=== PATIENT | female | born 1935 | race Asian ===

== ENCOUNTER 2022-08-07 13:31 | Emergency (ER) | payer MEDICARE, OTHER, SELFPAY ==
[2022-08-07] VITALS (26 sets, daily range): BP systolic 134–235; BP diastolic 58–95; PULSE 51–59; RESP 7–37; TEMP 36.5–37.5; O2SAT 86–100; BMI 21.9
--- NOTE | 2022-08-07 14:21 | DI.RAD.S_ITS ---
PROCEDURE: XR CHEST 1V INDICATIONS: chest pain TECHNIQUE: One view of the chest was acquired. COMPARISON: None. FINDINGS: Surgical changes and devices: Right upper quadrant cholecystectomy clips. Lungs and pleura: Lungs are clear. No pleural effusions or pneumothorax. Mediastinum: Cardiac silhouette is mildly enlarged. Mild to moderate aortic atherosclerotic calcifications. Bones and chest wall: No suspicious bony lesions. Overlying soft tissues appear unremarkable. Age appropriate degenerative changes are noted. IMPRESSION: Mild enlarged cardiac silhouette. No acute pulmonary opacity. Approved by: Elgin Reveles M.D. on 08/07/2022 at 15:34
[2022-08-07 14:48] LABS: Add Manual Diff / Slide Review NO; Basophils Absolute Auto 0 /uL (0-100); Basophils Percent Auto 0.6 % (0-2); Eosinophils Absolute Auto 100 /uL (0-450); Eosinophils Percent Auto 1.2 % (2-4); Hematocrit 39.3 % (36-46); Hemoglobin 13.2 g/dL (12.0-16.0); Lymphocytes Absolute Auto 1500 /uL (1100-4500); Lymphocytes Percent Auto 32.4 % (25-40); Mean Corpuscular HGB Conc 33.6 % (30-36); Mean Corpuscular Hemoglobin 34.6 PG (26-34); Mean Corpuscular Volume 102.9 fL (80-100); Monocytes Absolute Auto 400 /uL (0-900); Monocytes Percent Auto 9.6 % (3-14); Neutrophils Absolute Auto 2600 /uL (1500-7000); Neutrophils Percent Auto 56.2 % (50-75); Platelet Count 191 X10^3/uL (150-400); Red Blood Cell Count 3.82 X10^6/uL (4.0-5.2); Red Cell Distribution Width 14.8 % (11.6-14.8); White Blood Cell Count 4.7 X10^3/uL (4.5-11.0)
[2022-08-07 14:53] LABS: Prothrombin Time 11.4 SECONDS (10.1-12.7)
[2022-08-07 14:56] LABS: PTT Partial Thromboplastin Tim 38 SECONDS (26-36)
[2022-08-07 15:00] LABS: Alanine Aminotransferase 19 IU/L (<35); Albumin 3.9 g/dL (3.5-5.0); Alkaline Phosphatase 76 U/L (38-126); Aspartate Aminotransferase 26 IU/L (14-36); BUN Creatinine Ratio 20.3 (6-22); Bilirubin Total 0.5 mg/dL (0.2-1.3); Blood Urea Nitrogen 16 mg/dL (7-17); Calcium 8.9 mg/dL (8.4-10.2); Carbon Dioxide 33 mmol/L (22-32); Chloride 103 mmol/L (98-107); Creatine Kinase 52 U/L (30-135); Estimated Glomerular Filt Rate > 60 mL/min (>60); Globulin 4.1 g/dL (1.7-4.1); Glucose 86 mg/dL (80-110); HEMOLYSIS < 15 (0-50); Lipase 187 U/L (23-300); Magnesium 1.9 mg/dL (1.6-2.3); Potassium 4.3 mmol/L (3.4-5.1); Sodium 139 mmol/L (137-145)
[2022-08-07 15:10] LABS: Troponin I < 0.012 ng/mL (0.01-0.034)
[2022-08-07 16:24] LABS: RBC Urine None Seen (0-5/HPF); WBC Urine None Seen (0-5/HPF)
[2022-08-07 16:25] LABS: Amorphous Sediment Urine 1+; Bacteria Urine None Seen; Culture Indicated Urine Cult Not Indicated
--- NOTE | 2022-08-07 17:45 | ED_ITS ---
HPI - General Adult <FABY Simpson - Last Filed: 08/07/22 19:48> General Chief complaint: Hypertension Stated complaint: elevated BP Time Seen by Provider: 08/07/22 17:24 Source: patient Mode of arrival: Family Vehicle History of Present Illness HPI narrative: This is a 87-year-old female who presents emergency department complaining of hypertension this morning and over the last few days. 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 Patient is taken lisinopril, metoprolol, losartan in the past but is on a 1 medication regimen at this time for hypertension. She is not anticoagulated, she presents today for headache with hypertension, had systolics over 200 today, at baseline she checks her blood pressure morning and night. She is not been to this hospital before so there no prior records. She denies chest pain, dysuria, confusion, vision changes, focal neurological deficit or shortness of breath. Related Data Previous Rx's Medication Instructions Recorded hydralazine 25 mg tablet 25 mg PO DAILY PRN high blood 08/07/22 pressure #30 tabs Allergies Allergy/AdvReac Type Severity Reaction Status Date / Time lisinopril Allergy Cough Verified 08/07/22 14:20 Review of Systems <FABY Simpson - Last Filed: 08/07/22 19:48> Review of Systems ROS Unobtainable: All systems reviewed & are unremarkable except as noted in HPI and below Patient History <FABY Simpson - Last Filed: 08/07/22 19:48> Social History Smoking Status: Never smoker Smoking Status: Never smoker alcohol intake frequency: 0-2 drinks per day Substance Use Type: does not use Exam <FABY Simpson - Last Filed: 08/07/22 19:48> Narrative Exam Narrative: Reviewed vitals signs and nursing notes. General: cooperative, in no acute distress, well groomed HEENT: symmetrical facial expressions, moist mucous membranes, neck is supple CV: Bradycardic rate and regular rhythm, systolic murmur heard on the left lateral border warm extremities Respiratory: Without abnormal breath sounds, normal work of breathing, without tachypnea, hypoxia. GI: abdomen soft, nontender to palpation in all quadrants, nondistended, without masses, rebound tenderness or CVA tenderness bilaterally. MSK: moves all extremities, neurovascularly intact, no weakness, normal tone Skin: brisk capillary refill, without rash or wound Neuro: normal speech and cognition, A&O x3, ambulatory, clear speech Initial Vital Signs Initial Vital Signs: Vital Signs Temperature 99.5 F 08/07/22 14:16 Pulse Rate 59 L 08/07/22 14:16 Respiratory Rate 19 08/07/22 14:16 Blood Pressure 233/93 H 08/07/22 14:16 Pulse Oximetry 99 08/07/22 14:16 Oxygen Delivery Method Room Air 08/07/22 14:16 <Tanesha Flores DO - Last Filed: 08/11/22 08:42> Initial Vital Signs Initial Vital Signs: Vital Signs Temperature 99.5 F 08/07/22 14:16 Pulse Rate 59 L 08/07/22 14:16 Respiratory Rate 19 08/07/22 14:16 Blood Pressure 233/93 H 08/07/22 14:16 Pulse Oximetry 99 08/07/22 14:16 Oxygen Delivery Method Room Air 08/07/22 14:16 Course <FABY Simpson - Last Filed: 08/07/22 19:48> Orders Ordered: Discontinued Medications Aspirin (Aspirin 81 Mg Chew Tab) 324 mg PO NOW ONE Stop: 08/07/22 14:22 Last Admin: 08/07/22 17:51 Dose: Not Given Documented By: TUCKER Hydralazine HCl (Hydralazine 25 Mg Tablet) 25 mg PO NOW ONE Stop: 08/07/22 17:54 Last Admin: 08/07/22 18:10 Dose: 25 mg Documented By: TUCKER Vital Signs Vital signs: Vital Signs - 8 hr 08/07/22 14:16 08/07/22 15:07 08/07/22 15:16 Temperature 99.5 F Pulse Rate 59 L 52 L Respiratory Rate 19 17 Blood Pressure 233/93 H Pulse Oximetry 99 99 99 Oxygen Delivery Method Room Air 08/07/22 15:16 08/07/22 15:21 08/07/22 15:21 Temperature Pulse Rate 52 L Respiratory Rate 19 Blood Pressure 235/95 H 210/88 H Pulse Oximetry 99 Oxygen Delivery Method 08/07/22 15:30 08/07/22 15:30 08/07/22 15:45 Temperature Pulse Rate 52 L Respiratory Rate 16 Blood Pressure 197/81 H 207/86 H Pulse Oximetry 99 Oxygen Delivery Method 08/07/22 15:45 08/07/22 16:00 08/07/22 16:00 Temperature Pulse Rate 53 L 52 L Respiratory Rate 15 15 Blood Pressure 186/79 H Pulse Oximetry 100 99 Oxygen Delivery Method 08/07/22 16:15 08/07/22 16:15 08/07/22 16:30 Temperature Pulse Rate 51 L Respiratory Rate 7 L Blood Pressure 165/71 H 159/58 H Pulse Oximetry 100 Oxygen Delivery Method 08/07/22 16:30 08/07/22 16:45 08/07/22 16:45 Temperature Pulse Rate 52 L 52 L Respiratory Rate 18 18 Blood Pressure 172/75 H Pulse Oximetry 86 L 100 Oxygen Delivery Method 08/07/22 17:00 08/07/22 17:00 08/07/22 17:15 Temperature Pulse Rate 52 L 51 L Respiratory Rate 24 23 Blood Pressure 179/77 H Pulse Oximetry 100 Oxygen Delivery Method 08/07/22 17:15 08/07/22 17:30 08/07/22 17:31 Temperature Pulse Rate 57 L 57 L Respiratory Rate 31 H 37 H Blood Pressure 190/80 H Pulse Oximetry 99 99 Oxygen Delivery Method 08/07/22 17:31 08/07/22 18:00 08/07/22 18:13 Temperature Pulse Rate 56 L 57 L Respiratory Rate 23 20 Blood Pressure 221/92 H Pulse Oximetry Oxygen Delivery Method 08/07/22 18:13 08/07/22 18:15 08/07/22 18:15 Temperature Pulse Rate 53 L Respiratory Rate 14 Blood Pressure 134/79 199/83 H Pulse Oximetry Oxygen Delivery Method 08/07/22 18:30 08/07/22 18:31 08/07/22 18:31 Temperature Pulse Rate 54 L 53 L Respiratory Rate 19 21 Blood Pressure 220/88 H Pulse Oximetry Oxygen Delivery Method 08/07/22 18:58 08/07/22 18:58 08/07/22 19:00 Temperature Pulse Rate 56 L Respiratory Rate 26 H Blood Pressure 208/82 H 208/80 H Pulse Oximetry 99 Oxygen Delivery Method 08/07/22 19:00 08/07/22 19:16 08/07/22 19:16 Temperature Pulse Rate 59 L 58 L Respiratory Rate 26 H 24 Blood Pressure 219/86 H Pulse Oximetry 94 Oxygen Delivery Method 08/07/22 19:30 08/07/22 19:39 08/07/22 19:31 Temperature 97.7 F Pulse Rate 55 L 58 L Respiratory Rate 24 16 Blood Pressure 165/72 H 164/70 H Pulse Oximetry 94 97 Oxygen Delivery Method Room Air 08/07/22 19:31 08/07/22 19:35 08/07/22 19:35 Temperature Pulse Rate 55 L 57 L Respiratory Rate 22 31 H Blood Pressure 165/72 H Pulse Oximetry 94 94 Oxygen Delivery Method <Tanesha Flores, - Last Filed: 08/11/22 08:42> Orders Ordered: Discontinued Medications Aspirin (Aspirin 81 Mg Chew Tab) 324 mg PO NOW ONE Stop: 08/07/22 14:22 Last Admin: 08/07/22 17:51 Dose: Not Given Documented By: TUCKER Hydralazine HCl (Hydralazine 25 Mg Tablet) 25 mg PO NOW ONE Stop: 08/07/22 17:54 Last Admin: 08/07/22 18:10 Dose: 25 mg Documented By: TUCKER Vital Signs Vital signs: Vital Signs - 8 hr 08/07/22 14:16 08/07/22 15:07 08/07/22 15:16 Temperature 99.5 F Pulse Rate 59 L 52 L Respiratory Rate 19 17 Blood Pressure 233/93 H Pulse Oximetry 99 99 99 Oxygen Delivery Method Room Air 08/07/22 15:16 08/07/22 15:21 08/07/22 15:21 Temperature Pulse Rate 52 L Respiratory Rate 19 Blood Pressure 235/95 H 210/88 H Pulse Oximetry 99 Oxygen Delivery Method 08/07/22 15:30 08/07/22 15:30 08/07/22 15:45 Temperature Pulse Rate 52 L Respiratory Rate 16 Blood Pressure 197/81 H 207/86 H Pulse Oximetry 99 Oxygen Delivery Method 08/07/22 15:45 08/07/22 16:00 08/07/22 16:00 Temperature Pulse Rate 53 L 52 L Respiratory Rate 15 15 Blood Pressure 186/79 H Pulse Oximetry 100 99 Oxygen Delivery Method 08/07/22 16:15 08/07/22 16:15 08/07/22 16:30 Temperature Pulse Rate 51 L Respiratory Rate 7 L Blood Pressure 165/71 H 159/58 H Pulse Oximetry 100 Oxygen Delivery Method 08/07/22 16:30 08/07/22 16:45 08/07/22 16:45 Temperature Pulse Rate 52 L 52 L Respiratory Rate 18 18 Blood Pressure 172/75 H Pulse Oximetry 86 L 100 Oxygen Delivery Method 08/07/22 17:00 08/07/22 17:00 08/07/22 17:15 Temperature Pulse Rate 52 L 51 L Respiratory Rate 24 23 Blood Pressure 179/77 H Pulse Oximetry 100 Oxygen Delivery Method 08/07/22 17:15 08/07/22 17:30 08/07/22 17:31 Temperature Pulse Rate 57 L 57 L Respiratory Rate 31 H 37 H Blood Pressure 190/80 H Pulse Oximetry 99 99 Oxygen Delivery Method 08/07/22 17:31 08/07/22 18:00 08/07/22 18:13 Temperature Pulse Rate 56 L 57 L Respiratory Rate 23 20 Blood Pressure 221/92 H Pulse Oximetry Oxygen Delivery Method 08/07/22 18:13 08/07/22 18:15 08/07/22 18:15 Temperature Pulse Rate 53 L Respiratory Rate 14 Blood Pressure 134/79 199/83 H Pulse Oximetry Oxygen Delivery Method 08/07/22 18:30 08/07/22 18:31 08/07/22 18:31 Temperature Pulse Rate 54 L 53 L Respiratory Rate 19 21 Blood Pressure 220/88 H Pulse Oximetry Oxygen Delivery Method 08/07/22 18:58 08/07/22 18:58 08/07/22 19:00 Temperature Pulse Rate 56 L Respiratory Rate 26 H Blood Pressure 208/82 H 208/80 H Pulse Oximetry 99 Oxygen Delivery Method 08/07/22 19:00 08/07/22 19:16 08/07/22 19:16 Temperature Pulse Rate 59 L 58 L Respiratory Rate 26 H 24 Blood Pressure 219/86 H Pulse Oximetry 94 Oxygen Delivery Method 08/07/22 19:30 08/07/22 19:39 08/07/22 19:31 Temperature 97.7 F Pulse Rate 55 L 58 L Respiratory Rate 24 16 Blood Pressure 165/72 H 164/70 H Pulse Oximetry 94 97 Oxygen Delivery Method Room Air 08/07/22 19:31 08/07/22 19:35 08/07/22 19:35 Temperature Pulse Rate 55 L 57 L Respiratory Rate 22 31 H Blood Pressure 165/72 H Pulse Oximetry 94 94 Oxygen Delivery Method Medical Decision Making <Wendi Reynolds, [facility] - Last Filed: 08/07/22 19:48> Lab Data 08/07/22 14:34 08/07/22 14:34 Labs: Lab Results 08/07/22 08/07/22 08/07/22 Range/Units 14:29 14:34 14:34 WBC 4.7 (4.5-11.0) X10^3/uL RBC 3.82 L (4.0-5.2) X10^6/uL Hgb 13.2 (12.0-16.0) g/dL Hct 39.3 (36-46) % MCV 102.9 H (80-100) fL MCH 34.6 H (26-34) PG MCHC 33.6 (30-36) % RDW 14.8 (11.6-14.8) % Plt Count 191 (150-400) X10^3/uL Neut % (Auto) 56.2 (50-75) % Lymph % (Auto) 32.4 (25-40) % [place] % (Auto) 9.6 (3-14) % Eos % (Auto) 1.2 L (2-4) % Baso % (Auto) 0.6 (0-2) % Neut # (Auto) 2600 (0700-0409) /uL Lymph # (Auto) 1500 (5991-7807) /uL [place] # (Auto) 400 (0-900) /uL Eos # (Auto) 100 (0-450) /uL Baso # (Auto) 0 (0-100) /uL PT 11.4 (10.1-12.7) SECONDS INR 1.0 (0.9-1.3) APTT 38 H (26-36) SECONDS Sodium (137-145) mmol/L Potassium (3.4-5.1) mmol/L Chloride (98-107) mmol/L Carbon Dioxide (22-32) mmol/L BUN (7-17) mg/dL Creatinine (0.52-1.04) mg/dL Estimated GFR (>60) mL/min BUN/Creatinine Ratio (6-22) Glucose (80-110) mg/dL Calcium (8.4-10.2) mg/dL Magnesium (1.6-2.3) mg/dL Total Bilirubin (0.2-1.3) mg/dL AST (14-36) IU/L ALT (<35) IU/L Alkaline Phosphatase (38-126) U/L Total Creatine Kinase (30-135) U/L CK-MB (CK-2) CK-MB (CK-2) Rel Index Troponin I (0.01-0.034) ng/mL NT-Pro-B Natriuret Pep (<450) pg/mL Total Protein (6.3-8.2) g/dL Albumin (3.5-5.0) g/dL Globulin (1.7-4.1) g/dL Albumin/Globulin Ratio (1.0-2.8) Lipase (23-300) U/L Urine RBC None seen (0-5/HPF) Urine WBC None seen (0-5/HPF) Amorphous Sediment 1+ Urine Bacteria None seen (None) Ur Culture Indicated? Cult not indicated SARS-CoV-2 (PCR) (Negative) 08/07/22 08/07/22 08/07/22 Range/Units 14:34 17:41 18:55 WBC (4.5-11.0) X10^3/uL RBC (4.0-5.2) X10^6/uL Hgb (12.0-16.0) g/dL Hct (36-46) % MCV (80-100) fL MCH (26-34) PG MCHC (30-36) % RDW (11.6-14.8) % Plt Count (150-400) X10^3/uL Neut % (Auto) (50-75) % Lymph % (Auto) (25-40) % [place] % (Auto) (3-14) % Eos % (Auto) (2-4) % Baso % (Auto) (0-2) % Neut # (Auto) (3985-5864) /uL Lymph # (Auto) (3444-9755) /uL [place] # (Auto) (0-900) /uL Eos # (Auto) (0-450) /uL Baso # (Auto) (0-100) /uL PT (10.1-12.7) SECONDS INR (0.9-1.3) APTT (26-36) SECONDS Sodium 139 (137-145) mmol/L Potassium 4.3 (3.4-5.1) mmol/L Chloride 103 (98-107) mmol/L Carbon Dioxide 33 H (22-32) mmol/L BUN 16 (7-17) mg/dL Creatinine 0.79 (0.52-1.04) mg/dL Estimated GFR > 60 (>60) mL/min BUN/Creatinine Ratio 20.3 (6-22) Glucose 86 (80-110) mg/dL Calcium 8.9 (8.4-10.2) mg/dL Magnesium 1.9 (1.6-2.3) mg/dL Total Bilirubin 0.5 (0.2-1.3) mg/dL AST 26 (14-36) IU/L ALT 19 (<35) IU/L Alkaline Phosphatase 76 (38-126) U/L Total Creatine Kinase 52 (30-135) U/L CK-MB (CK-2) TNP CK-MB (CK-2) Rel Index TNP Troponin I < 0.012 < 0.012 (0.01-0.034) ng/mL NT-Pro-B Natriuret Pep 189 (<450) pg/mL Total Protein 8.0 (6.3-8.2) g/dL Albumin 3.9 (3.5-5.0) g/dL Globulin 4.1 (1.7-4.1) g/dL Albumin/Globulin Ratio 1.0 (1.0-2.8) Lipase 187 (23-300) U/L Urine RBC (0-5/HPF) Urine WBC (0-5/HPF) Amorphous Sediment Urine Bacteria (None) Ur Culture Indicated? SARS-CoV-2 (PCR) Negative (Negative) Urine Dip Bedside Urine Glucose Negative Bedside Urine Bilirubin - Negative Bedside Urine Ketone - Negative Urine Specific Brave 1.010 Bedside Urine Occult Blood - Negative Bedside Urine pH 6.0 Bedside Urine Protein +/- 15 Bedside Urine Urobilinogen - Negative Bedside Urine Nitrite - Negative Bedside Urine Leukocytes - Negative Esterase Point of care testing: Urine Dip Bedside Urine Glucose Negative Bedside Urine Bilirubin - Negative Bedside Urine Ketone - Negative Urine Specific Brave 1.010 Bedside Urine Occult Blood - Negative Bedside Urine pH 6.0 Bedside Urine Protein +/- 15 Bedside Urine Urobilinogen - Negative Bedside Urine Nitrite - Negative Bedside Urine Leukocytes - Negative Esterase Imaging Data Chest x-ray: Radiologist's Impression: PROCEDURE:? XR CHEST 1V ? INDICATIONS:? chest pain ? TECHNIQUE:? One view of the chest was acquired.? ? COMPARISON:? None. ? FINDINGS:? ? Surgical changes and devices:? Right upper quadrant cholecystectomy clips.? ? Lungs and pleura:? Lungs are clear.? No pleural effusions or pneumothorax.? ? Mediastinum:? Cardiac silhouette is mildly enlarged.? Mild to moderate aortic atherosclerotic calcifications. ? Bones and chest wall:? No suspicious bony lesions.? Overlying soft tissues appear unremarkable.? Age appropriate degenerative changes are noted. ? IMPRESSION:? Mild enlarged cardiac silhouette.? No acute pulmonary opacity.? Approved by: Elgin Reveles M.D. on 08/07/2022 at 15:34? CT scan - head: Radiologist's Impression: PROCEDURE:? CT HEAD/BRAIN WO CON ? INDICATIONS:? hypertensive ? TECHNIQUE:? Noncontrast 4.5 mm thick angled axial sections acquired from the foramen magnum to the vertex, with coronal and sagittal reformats.? For radiation dose reduction, the following was used:? automated exposure control, adjustment of mA and/or kV according to patient size.? ? COMPARISON:? [facility], , US RENAL COMPLETE, 08/07/2022, 17:57.? [facility], CR, XR CHEST 1V, 08/07/2022, 14:43. ? FINDINGS:? Image quality:? Excellent.? ? CSF spaces:? Basal cisterns are patent.? No extra-axial fluid collections.? The ventricles are symmetric in size and shape.? ? Brain:? No intracranial bleeds or masses.? There is cerebral volume loss for age, with resultant ventricular and sulcal prominence.? There are periventricular and deep white matter chronic small vessel ischemic changes.? There is intracranial internal carotid artery atherosclerosis.? Symmetric calcification can be seen involving the basal ganglia, which is considered to be normal for age. ? Skull and face:? Calvarium and visualized facial bones appear intact, without suspicious lesions.? ? Sinuses:? [id number] mucosal thickening is seen involving the right maxillary sinus.? The castillo of the right maxillary sinus appear demineralized.? The para nasal sinuses are otherwise unremarkable. No abnormal fluid is seen within the mastoid air cells. ? ? IMPRESSION:? Study within normal limits for age, without acute intracranial hemorrhage. ? Focal right maxillary sinus disease noted. ? ? Dictated by: Bhaskar Govea M.D. on 08/07/2022 at 18:23 ? ? Approved by: Bhaskar Govea M.D. on 08/07/2022 at 18:24 ? Renal US: Radiologist's Impression: PROCEDURE:? US RENAL COMPLETE ? INDICATIONS:? hypertension ? TECHNIQUE:? Real-time scanning was performed of the kidneys and bladder, with image documentation.? ? COMPARISON:? None. ? FINDINGS:? ? Kidneys:? Kidneys are mildly atrophic in size.? Right kidney measures 9.0 cm long; left kidney measures 8.5 cm long.? Right renal cortical thickness is 1.3 cm; left renal cortical thickness is 1.3 cm.? Renal cortical echotexture is normal.? No hydronephrosis or nephrolithiasis.? No suspicious solid mass lesions.? Simple bilateral renal cysts. ? Bladder:? Pre-void bladder volume is 379 mL.? Post-void residual is 8 mL.? Pre- void images demonstrate no intraluminal masses or stones.? On pre-void images, bilateral ureteral jets are noted with color Doppler interrogation.? (Of note, ureteral jets may not be detectable in up to 25% of cases due to insufficient differences in specific gravity between ureteral and bladder urine).? ? Miscellaneous:? No free pelvic fluid.? ? IMPRESSION:? Mild bilateral renal atrophy. ? ? Dictated by: Kassidy Mendosa M.D. on 08/07/2022 at 19:41 ? ? Approved by: Kassidy Mendosa M.D. on 08/07/2022 at 19:42 ? ECG Data Interpretation: EKG independently reviewed by myself at 1542 reveals sinus bradycardia at 56 bpm with regular axis and intervals. No STEMI, ST segment changes, arrhythmia, or acute ischemic changes. MDM Narrative Medical decision making narrative: Chief Complaint: Hypertension Independent historian: Patient Differential diagnoses include but are not limited to: Hypertension emergency, CVA, ASHLYN, hyperthyroidism, anxiety, pain, urinary tract infection, obstructive uropathy, intracranial hemorrhage, glomerular nephritis, renal artery stenosis, nephrotic syndrome/nephritic syndrome, aortic stenosis, hypertrophic cardiomyopathy, mitral regurgitation I have independently reviewed the patient's vital signs and nursing notes as well as prior records if available. Pertinent lab findings reviewed: CBC without leukocytosis or anemia, chemistry is reassuring without elevation of her creatinine, no prior lab work to compare to unfortunately. Patient's GFR is over 60, creatinine 0.79 BUN of 16. Initial troponin 0.012, repeat troponin of 0.012 BNP is not elevated at 189 Pertinent Imaging reviewed: CT head without acute intracranial abnormality or evidence of intracranial hemorrhage, Renal ultrasound does not show any free pelvic fluid, mild bilateral renal atrophy, no hydronephrosis or nephrolithiasis Clinical decision rules or scores evaluated: LVH by Sokolov-Bautista criteria Course of care: On exam, patient remains hypertensive, denies shortness of breath, chest pain, weakness, vision changes but endorses mild headache. Her renal function is good today, no elevation of her creatinine or BUN, GFR is over 60. No evidence of CHF today, no pleural effusions or edema. Her UA does not show RBCs, WBCs or bacteria. Lipase is normal. EKG shows LVH as above no ectopy, signs of ischemia or ST changes. Patient has rhinorrhea endorses congestion, mild conjunctival injection bilaterally and symptoms of upper respiratory viral illness. Suspect this is likely a contributing factor to her elevated blood pressure today. She was given 25 mg of p.o. hydralazine for normal renal function today and her blood pressure came down from 220 systolic to 165/72, improvement of her headache, other symptoms and did not require pain medication for this. She is not have any focal neuro deficit at this time, renal ultrasound report is pending Patient is recommended to follow up with Dr. Flynn regarding her Jardiance as this may be the best thing for her blood pressure and spilling protein in her urine. She had protein present on her urine today. Social considerations that may affect disposition: none Questions are addressed and there is agreement with the plan and for follow-up. Patient is appropriate for outpatient management. MIPS: This encounter doesn't have any diagnosis' associated with MIPS criteria. <Tanesha Flores DO - Last Filed: 08/11/22 08:42> Lab Data Labs: Lab Results 08/07/22 08/07/22 08/07/22 Range/Units 14:29 14:34 14:34 WBC 4.7 (4.5-11.0) X10^3/uL RBC 3.82 L (4.0-5.2) X10^6/uL Hgb 13.2 (12.0-16.0) g/dL Hct 39.3 (36-46) % MCV 102.9 H (80-100) fL MCH 34.6 H (26-34) PG MCHC 33.6 (30-36) % RDW 14.8 (11.6-14.8) % Plt Count 191 (150-400) X10^3/uL Neut % (Auto) 56.2 (50-75) % Lymph % (Auto) 32.4 (25-40) % [place] % (Auto) 9.6 (3-14) % Eos % (Auto) 1.2 L (2-4) % Baso % (Auto) 0.6 (0-2) % Neut # (Auto) 2600 (5501-3917) /uL Lymph # (Auto) 1500 (8431-6004) /uL [place] # (Auto) 400 (0-900) /uL Eos # (Auto) 100 (0-450) /uL Baso # (Auto) 0 (0-100) /uL PT 11.4 (10.1-12.7) SECONDS INR 1.0 (0.9-1.3) APTT 38 H (26-36) SECONDS Sodium (137-145) mmol/L Potassium (3.4-5.1) mmol/L Chloride (98-107) mmol/L Carbon Dioxide (22-32) mmol/L BUN (7-17) mg/dL Creatinine (0.52-1.04) mg/dL Estimated GFR (>60) mL/min BUN/Creatinine Ratio (6-22) Glucose (80-110) mg/dL Calcium (8.4-10.2) mg/dL Magnesium (1.6-2.3) mg/dL Total Bilirubin (0.2-1.3) mg/dL AST (14-36) IU/L ALT (<35) IU/L Alkaline Phosphatase (38-126) U/L Total Creatine Kinase (30-135) U/L CK-MB (CK-2) CK-MB (CK-2) Rel Index Troponin I (0.01-0.034) ng/mL NT-Pro-B Natriuret Pep (<450) pg/mL Total Protein (6.3-8.2) g/dL Albumin (3.5-5.0) g/dL Globulin (1.7-4.1) g/dL Albumin/Globulin Ratio (1.0-2.8) Lipase (23-300) U/L Urine RBC None seen (0-5/HPF) Urine WBC None seen (0-5/HPF) Amorphous Sediment 1+ Urine Bacteria None seen (None) Ur Culture Indicated? Cult not indicated SARS-CoV-2 (PCR) (Negative) 08/07/22 08/07/22 08/07/22 Range/Units 14:34 17:41 18:55 WBC (4.5-11.0) X10^3/uL RBC (4.0-5.2) X10^6/uL Hgb (12.0-16.0) g/dL Hct (36-46) % MCV (80-100) fL MCH (26-34) PG MCHC (30-36) % RDW (11.6-14.8) % Plt Count (150-400) X10^3/uL Neut % (Auto) (50-75) % Lymph % (Auto) (25-40) % [place] % (Auto) (3-14) % Eos % (Auto) (2-4) % Baso % (Auto) (0-2) % Neut # (Auto) (4513-4725) /uL Lymph # (Auto) (0838-7805) /uL [place] # (Auto) (0-900) /uL Eos # (Auto) (0-450) /uL Baso # (Auto) (0-100) /uL PT (10.1-12.7) SECONDS INR (0.9-1.3) APTT (26-36) SECONDS Sodium 139 (137-145) mmol/L Potassium 4.3 (3.4-5.1) mmol/L Chloride 103 (98-107) mmol/L Carbon Dioxide 33 H (22-32) mmol/L BUN 16 (7-17) mg/dL Creatinine 0.79 (0.52-1.04) mg/dL Estimated GFR > 60 (>60) mL/min BUN/Creatinine Ratio 20.3 (6-22) Glucose 86 (80-110) mg/dL Calcium 8.9 (8.4-10.2) mg/dL Magnesium 1.9 (1.6-2.3) mg/dL Total Bilirubin 0.5 (0.2-1.3) mg/dL AST 26 (14-36) IU/L ALT 19 (<35) IU/L Alkaline Phosphatase 76 (38-126) U/L Total Creatine Kinase 52 (30-135) U/L CK-MB (CK-2) TNP CK-MB (CK-2) Rel Index TNP Troponin I < 0.012 < 0.012 (0.01-0.034) ng/mL NT-Pro-B Natriuret Pep 189 (<450) pg/mL Total Protein 8.0 (6.3-8.2) g/dL Albumin 3.9 (3.5-5.0) g/dL Globulin 4.1 (1.7-4.1) g/dL Albumin/Globulin Ratio 1.0 (1.0-2.8) Lipase 187 (23-300) U/L Urine RBC (0-5/HPF) Urine WBC (0-5/HPF) Amorphous Sediment Urine Bacteria (None) Ur Culture Indicated? SARS-CoV-2 (PCR) Negative (Negative) Urine Dip Bedside Urine Glucose Negative Bedside Urine Bilirubin - Negative Bedside Urine Ketone - Negative Urine Specific Brave 1.010 Bedside Urine Occult Blood - Negative Bedside Urine pH 6.0 Bedside Urine Protein +/- 15 Bedside Urine Urobilinogen - Negative Bedside Urine Nitrite - Negative Bedside Urine Leukocytes - Negative Esterase Point of care testing: Urine Dip Bedside Urine Glucose Negative Bedside Urine Bilirubin - Negative Bedside Urine Ketone - Negative Urine Specific Brave 1.010 Bedside Urine Occult Blood - Negative Bedside Urine pH 6.0 Bedside Urine Protein +/- 15 Bedside Urine Urobilinogen - Negative Bedside Urine Nitrite - Negative Bedside Urine Leukocytes - Negative Esterase ECG Data Interpretation: EKG independently reviewed by myself at 1542 reveals sinus bradycardia at 56 bpm with regular axis and intervals. No STEMI, ST segment changes, arrhythmia, or acute ischemic changes. Mank: Sinus bradycardia rate of 50 6p are 166 QRS 82 QTC 428. No acute ST elevation appreciated some suspected motion artifact lateral appreciated. Discharge Plan Departure Patient Disposition: Home Clinical Impression: Hypertension Instructions: DI for High Blood Pressure Activity Restrictions/Additional Instructions: *You have been diagnosed with hypertension, this is likely related to a number of things. You could have a viral illness like a common cold, we will call you if the COVID test is positive. The urinary test is negative for infection. Your kidney function appears well on your lab work today. No evidence of heart strain on your lab work or EKG. Blood pressure, today we gave you a medication that works on the kidneys however you have good kidney function today so it may be the perfect thing for the interim until you follow-up with Dr. Flynn. Please use this medication as needed for blood pressures over 190 systolic. Please drink plenty of water, take Zyrtec as needed for your congestion or runny nose. Follow-up with your primary care provider after you follow-up with Dr. Flynn. Please do not hesitate to return if you have worsening symptoms. Okay to use Tylenol as needed for your headache. *What to do: *Please continue to take your regular medications as directed. [ x] New medication prescriptions sent to your pharmacy: [ DOD] [ ] New medication written as a paper prescription [ ] No new medications given *Please follow up with your primary care provider in 2-3 days, call for an appointment. Let them know you were seen in the Emergency Department and that we asked that you be seen for follow-up. We will electronically transmit a record of today's note if your PCP is in our system *If you do not have a primary care provider please contact [phone] to establish care with one of the [facility] primary care providers. *Return to Emergency Department if you should have any new, worsening, or concerning symptoms, such as [fever greater than 101F, chills, worsening pain, persistent vomiting or other bothersome symptoms]. Prescriptions: New hydralazine 25 mg tablet 25 mg PO DAILY PRN (Reason: high blood pressure) Qty: 30 0RF Referrals: Armando Reyes MD [Non-Staff] - Provider,Nicole LOPEZ [Primary Care Provider] - Capri,Teo Mckeon MD [Non-Staff] - Stand Alone Forms: Patient Portal/API <Tanesha Flores DO - Last Filed: 04/02/23 08:42> Cosign ED Attending Cosmeloature Attestation: I was immediately available in the department for consultation. Documentation has been reviewed. Case was discussed. Workup including renal ultrasound to evaluate as patient has not had this. Patient has several days of hypertensive numbers that she is brought with her and felt appropriate to adjust her medications and have her follow-up for continuation or adjustment of medications as felt appropriate by medical team.
--- NOTE | 2022-08-07 17:47 | DI.US.S_ITS ---
PROCEDURE: US RENAL COMPLETE INDICATIONS: hypertension TECHNIQUE: Real-time scanning was performed of the kidneys and bladder, with image documentation. COMPARISON: None. FINDINGS: Kidneys: Kidneys are mildly atrophic in size. Right kidney measures 9.0 cm long; left kidney measures 8.5 cm long. Right renal cortical thickness is 1.3 cm; left renal cortical thickness is 1.3 cm. Renal cortical echotexture is normal. No hydronephrosis or nephrolithiasis. No suspicious solid mass lesions. Simple bilateral renal cysts. Bladder: Pre-void bladder volume is 379 mL. Post-void residual is 8 mL. Pre-void images demonstrate no intraluminal masses or stones. On pre-void images, bilateral ureteral jets are noted with color Doppler interrogation. (Of note, ureteral jets may not be detectable in up to 25% of cases due to insufficient differences in specific gravity between ureteral and bladder urine). Miscellaneous: No free pelvic fluid. IMPRESSION: Mild bilateral renal atrophy. Dictated by: Kassidy Mendosa M.D. on 08/07/2022 at 19:41 Approved by: Kassidy Mendosa M.D. on 08/07/2022 at 19:42
--- NOTE | 2022-08-07 17:51 | DI.CT.S_ITS ---
PROCEDURE: CT HEAD/BRAIN WO CON INDICATIONS: hypertensive TECHNIQUE: Noncontrast 4.5 mm thick angled axial sections acquired from the foramen magnum to the vertex, with coronal and sagittal reformats. For radiation dose reduction, the following was used: automated exposure control, adjustment of mA and/or kV according to patient size. COMPARISON: [facility], , US RENAL COMPLETE, 08/07/2022, 17:57. [facility], CR, XR CHEST 1V, 08/07/2022, 14:43. FINDINGS: Image quality: Excellent. CSF spaces: Basal cisterns are patent. No extra-axial fluid collections. The ventricles are symmetric in size and shape. Brain: No intracranial bleeds or masses. There is cerebral volume loss for age, with resultant ventricular and sulcal prominence. There are periventricular and deep white matter chronic small vessel ischemic changes. There is intracranial internal carotid artery atherosclerosis. Symmetric calcification can be seen involving the basal ganglia, which is considered to be normal for age. Skull and face: Calvarium and visualized facial bones appear intact, without suspicious lesions. Sinuses: [id number] mucosal thickening is seen involving the right maxillary sinus. The castillo of the right maxillary sinus appear demineralized. The paranasal sinuses are otherwise unremarkable. No abnormal fluid is seen within the mastoid air cells. IMPRESSION: Study within normal limits for age, without acute intracranial hemorrhage. Focal right maxillary sinus disease noted. Dictated by: Bhaskar Govea M.D. on 08/07/2022 at 18:23 Approved by: Bhaskar Govea M.D. on 08/07/2022 at 18:24
[2022-08-07] MEDS: HYDRALAZINE 25 MG TABLET PO (18:10)
[2022-08-07 18:15] LABS: NT-proBNP (BNP-Adult 18+) 189 pg/mL (<450); Troponin I < 0.012 ng/mL (0.01-0.034)
[2022-08-07 19:28] LABS: COVID19 -Nasal RAPID Negative (Negative)
== END 2022-08-07 19:40 | disposition home or self-care (01) ==
PROVIDERS: Emergency Medicine; Emergency Provider Nurse Practitioner Critical Care Medicine
DX: I10 Essential (primary) hypertension (principal); R07.9 Chest pain, unspecified; Z20.822 Contact with and (suspected) exposure to COVID-19
CPT/HCPCS: 36415; 70450; 71045; 76770; 80053; 81003; 81015; 82550; 83690; 83735; 83880; 84484; 85025; 85610; 85730; 87635; 93005; 99283; 99284; C9803

== ENCOUNTER 2022-10-28 12:00 | Outpatient (RCR) | payer MEDICARE, OTHER, SELFPAY ==
--- NOTE | 2022-09-18 17:44 | PT.OIE ---
Current Diagnoses Benign paroxysmal vertigo, bilateral (09/18/22) Dizziness and giddiness (09/18/22) Visit Care Team Role Provider Type Sigrid Jarvis MD Primary Care Provider Non-Staff Specialty: Family Practice Address: [address] [place] [address], [address] Email: Cristiana Winston MD Family Provider Non-Staff Specialty: Internal Medicine Address: [address] [place] [address], [address] Email: Phill Cole MD Attending Provider Physician Referring Provider Specialty: Ear, Nose, Throat Address: [address] [place] [address], [address] Email: [email or web address] Physical Therapy Initial Evaluation PT-OP-A Visit Information Start: 09/18/22 17:27 Freq: Status: Active Protocol: Document 09/18/22 12:00 DCW (Rec: 09/18/22 17:44 DC [id number]) Out-Patient Physical Therapy Visit Information Visit Information Visit Type Initial Evaluation Visit Start Time 12:00 Visit Stop Time 12:45 Total Visit Minutes 45 Visit Number 1 Number of BUSINESS CONTINUITY MANAGER Visits 0 Evaluation Information Evaluation Date 09/18/22 PT-OP-B Current Condition Start: 09/18/22 17:27 Freq: Status: Active Protocol: Document 09/18/22 12:00 DCW (Rec: 09/18/22 17:44 [facility] [id number]) Current Condition History of Current Condition Onset Date Many years Current Complaints Positional vertigo with vague imbalance when up walking around History of Current Condition Pt is an 87 year old female complaining of a many year history of motion-induced vertigo and imbalance, as well as associated nausea and vomiting, and a few instances of dropping, unclear if there was any LOC. Pt reports episodes last less than five minutes. Symptoms are provoked specifically by positional changes, getting up and down in bed, or quick head turns, but also notes vague sensation of instability most of the time when up moving around. Pt reports symptoms are not waxing/waning in nature. Reports she was previously diagnosed with vertigo when she was in the [facility], and was given Meclizine, but doesn't like taking it, because it just puts her to sleep. Treatment Goals Patient/Caregiver Goals Decrease risk of falls PT-OP-C Subjective Start: 09/18/22 17:27 Freq: Status: Active Protocol: Document 09/18/22 12:00 DCW (Rec: 09/18/22 17:44 DCW [id number]) OP-PT Subjective Patient Comments Patient Comments I can't have any more falls. Patient Questionnaires Dizziness Handicap Inventory DHI Score 56% PT-OP-O Vestibular Start: 09/18/22 17:27 Freq: Status: Active Protocol: Document 09/18/22 12:00 DCW (Rec: 09/18/22 17:44 DCW [id number]) Vestibular Assessment Screening Tests Vestibular Artery Screen Negative Auditory Tests Juarez Test Within normal limits Rinne Test Negative Air Conduction Results Equal Visual Testing Smooth Pursuits Horizontal WNL Smooth Pursuits Vertical WNL Saccades Horizontal WNL Saccades Vertical WNL Heave Test Positive Bilateral Thrust Head Positive Bilateral Spontaneous Nystagmus Negative Positional Testing Tyson-Hallpike Positive Left,Positive Right, Upbeating,< 60 Seconds PT-OP-Q Treatments Start: 09/18/22 17:27 Freq: Status: Active Protocol: Document 09/18/22 12:00 DCW (Rec: 09/18/22 17:44 DCW [id number]) Canalithic Repositioning BPPV Treatment Kolby Affected Canal(s) Right posterior Reps x1 Comments Modified Kolby PT-OP-T Assessment and Plan Start: 09/18/22 17:27 Freq: Status: Active Protocol: Document 09/18/22 12:00 DCW (Rec: 09/18/22 17:44 DCW [id number]) Physical Therapy Assessment Rehab Potential Rehabilitation Potential Good Evaluation Complexity Number of Personal Factors/Comorbidities 1-2 Number of Body Systems Impaired 1-2 Clinical Presentation at Evaluation Unstable Impairments Impairments Balance,Functional Activities, Functional Mobility,Vestibular Goals Two Impairment Positive bilateral Tyson- Hallpike testing Shoe Stamper Goal (LTG) Pt to present with negative positional testing bilaterally LTG Duration 11/18/22 One Impairment Pt experiences position- dependent vertigo with bed mobility Shoe Stamper Goal (LTG) Pt to perform all bed mobility without reports of dizziness LTG Duration 11/18/22 Assessment Summary Assessment During both left and right Tyson -Hallpike test, pt complained of vertigo and demonstrated nystagmus lasting approximately 10 seconds, although directionality of nystagmus was difficult to determine, due to pt repeatedly closing her eyes. Did briefly appear to be up- beating and torsional, which would be consistent with diagnosis of bilateral posterior canal BPPV, canalithiasis-type. Right was more severe, per pt response, and therefor a right modified Kolby was performed. Pt complained of symptoms in the first and third position, which is normally indicative of a successful treatment. Explained to pt it is not typically effective to attempt to treat bilateral BPPV on the same day, pt understood. Would recommend return to skilled therapy for treatment of left BPPV, as well as further positional testing and CRM as indicated. Pt was educated on BPPV, expectations for treatment, possible recurrence (BPPV has a ~50% recurrence rate in the five years following treatment), and post-Kolby restrictions. Pt to return within ~1 week for a follow-up appointment, and intermittently afterward as indicated for treatment of BPPV. Physical Therapy Plan Frequency and Duration Frequency of Treatment 2x/Week Plan of Care Start Date 09/18/22 Plan of Care End Date 11/18/22 Therapeutic Interventions Therapeutic Interventions Balance Training,Canalithic Repositioning,Home Exercise Program,Manual Therapy, Neuromuscular Re-education, Patient/Caregiver Education, Self-Care/Home Management, Therapeutic Activities, Therapeutic Exercises, Vestibular Rehabilitation Next Visit Focus/Plan Next Note Type Treatment Note Next Visit Plan Positional testing, CRM as indicated
--- NOTE | 2022-09-18 17:45 | PT.OPPOC ---
Physical, Occupational & Speech Therapy At [facility] Current Diagnoses Benign paroxysmal vertigo, bilateral (09/18/22) Dizziness and giddiness (09/18/22) Visit Care Team Role Provider Type Sigrid Jarvis MD Primary Care Provider Non-Staff Specialty: Family Practice Address: [address] [place] [address], [address] Email: Cristiana Winsotn MD Family Provider Non-Staff Specialty: Internal Medicine Address: [address] [place] [address], [address] Email: Phill Cole MD Attending Provider Physician Referring Provider Specialty: Ear, Nose, Throat Address: [address] [place] [address], [address] Email: [email or web address] Plan Of Care PT-OP-T Assessment and Plan Start: 09/18/22 17:27 Freq: Status: Active Protocol: Document 09/18/22 12:00 DCW (Rec: 09/18/22 17:44 DCW [id number]) Physical Therapy Assessment Rehab Potential Rehabilitation Potential Good Evaluation Complexity Number of Personal Factors/Comorbidities 1-2 Number of Body Systems Impaired 1-2 Clinical Presentation at Evaluation Unstable Impairments Impairments Balance,Functional Activities, Functional Mobility,Vestibular Goals Two Impairment Positive bilateral Tyson- Hallpike testing Usp Goal (LTG) Pt to present with negative positional testing bilaterally LTG Duration 11/18/22 One Impairment Pt experiences position- dependent vertigo with bed mobility Usp Goal (LTG) Pt to perform all bed mobility without reports of dizziness LTG Duration 11/18/22 Assessment Summary Assessment During both left and right Tyson -Hallpike test, pt complained of vertigo and demonstrated nystagmus lasting approximately 10 seconds, although directionality of nystagmus was difficult to determine, due to pt repeatedly closing her eyes. Did briefly appear to be up- beating and torsional, which would be consistent with diagnosis of bilateral posterior canal BPPV, canalithiasis-type. Right was more severe, per pt response, and therefor a right modified Kolby was performed. Pt complained of symptoms in the first and third position, which is normally indicative of a successful treatment. Explained to pt it is not typically effective to attempt to treat bilateral BPPV on the same day, pt understood. Would recommend return to skilled therapy for treatment of left BPPV, as well as further positional testing and CRM as indicated. Pt was educated on BPPV, expectations for treatment, possible recurrence (BPPV has a ~50% recurrence rate in the five years following treatment), and post-Kolby restrictions. Pt to return within ~1 week for a follow-up appointment, and intermittently afterward as indicated for treatment of BPPV. Physical Therapy Plan Frequency and Duration Frequency of Treatment 2x/Week Plan of Care Start Date 09/18/22 Plan of Care End Date 11/18/22 Therapeutic Interventions Therapeutic Interventions Balance Training,Canalithic Repositioning,Home Exercise Program,Manual Therapy, Neuromuscular Re-education, Patient/Caregiver Education, Self-Care/Home Management, Therapeutic Activities, Therapeutic Exercises, Vestibular Rehabilitation Next Visit Focus/Plan Next Note Type Treatment Note Next Visit Plan Positional testing, CRM as indicated Plan of Care Dates Plan of Care Start Date 09/18/22 Plan of Care End Date 11/18/22 Electronically Signed by: Tomás Rodriguez, PT 09/18/22 0009 If you are in agreement with this Plan of Care, please return a signed and dated copy. I have reviewed this Plan of Care and certify that the skilled therapy services above are required to meet the patient?s needs. Physician Signature Date Printed Name and Credentials Clinical Instructor Signature Printed Name and Credentials
--- NOTE | 2022-10-28 12:40 | PT.OTN ---
Current Diagnoses Benign paroxysmal vertigo, bilateral (10/28/22) Dizziness and giddiness (10/28/22) Physical Therapy Treatment Note PT-OP-A Visit Information Start: 09/18/22: Freq: Status: Active Protocol: Document 10/28/22 12:00 DCW (Rec: 10/28/22 12:40 DCW [id number]) Out-Patient Physical Therapy Visit Information Visit Information Visit Type Treatment Note Visit Start Time 12:00 Visit Stop Time 12:30 Total Visit Minutes 30 Visit Number 2 Number of DIRECTOR TRANSLATION Visits 0 Evaluation Information Evaluation Date 09/18/22 PT-OP-B Current Condition Start: 09/18/22: Freq: Status: Active Protocol: Document 09/18/22 12:00 DCW (Rec: 09/18/22 17:44 DCW [id number]) Current Condition History of Current Condition Onset Date Many years Current Complaints Positional vertigo with vague imbalance when up walking around History of Current Condition Pt is an 87 year old female complaining of a many year history of motion-induced vertigo and imbalance, as well as associated nausea and vomiting, and a few instances of dropping, unclear if there was any LOC. Pt reports episodes last less than five minutes. Symptoms are provoked specifically by positional changes, getting up and down in bed, or quick head turns, but also notes vague sensation of instability most of the time when up moving around. Pt reports symptoms are not waxing/waning in nature. Reports she was previously diagnosed with vertigo when she was in the [facility], and was given Meclizine, but doesn't like taking it, because it just puts her to sleep. Treatment Goals Patient/Caregiver Goals Decrease risk of falls PT-OP-C Subjective Start: 09/18/22 Freq: Status: Active Protocol: Document 10/28/22 12:00 DCW (Rec: 10/28/22 12:40 DCW [id number]) OP-PT Subjective Patient Comments Patient Comments It's the same thing, I feel like my balance is off. PT-OP-O Vestibular Start: 09/18/22:27 Freq: Status: Active Protocol: Document 10/28/22 12:00 DCW (Rec: 10/28/22 12:40 DCW [id number]) Vestibular Assessment Positional Testing Tyson-Hallpike Positive Left,Negative Right, Upbeating,< 60 Seconds PT-OP-Q Treatments Start: 09/18/22 17:27 Freq: Status: Active Protocol: Document 10/28/22 12:00 DCW (Rec: 10/28/22 12:40 DCW [id number]) Self-Care/Home Management Treatment Education Other Education Ongoing management of balance and vestibular deficits, pt had repeated questiong regarding effectiveness of vestibular treatment, concerns about balance. Canalithic Repositioning BPPV Treatment Kolby Affected Canal(s) Left posterior Reps x1 Comments Modified Kolby PT-OP-T Assessment and Plan Start: 09/18/22 17:27 Freq: Status: Active Protocol: Document 10/28/22 12:00 DCW (Rec: 10/28/22 12:40 DCW [id number]) Physical Therapy Assessment Impairments Impairments Balance,Functional Activities, Functional Mobility,Vestibular Goals Two Impairment Positive bilateral Tyson- Hallpike testing Intermediate Goal (LTG) Pt to present with negative positional testing bilaterally LTG Duration 11/18/22 One Impairment Pt experiences position- dependent vertigo with bed mobility Intermediate Goal (LTG) Pt to perform all bed mobility without reports of dizziness LTG Duration 11/18/22 Assessment Summary Assessment After treatment of R posterior canal during her evaluation, right positional testing negative today. Left Hallpike continues to be positive, with up-beating torsional nystagmus lasting ~10 seconds. A left Modified Kolby was performed, pt complained of symptoms in the first and third position, which is normally indicative of a successful treatment. Pt instructed to phone clinic for follow-up visit if symptoms continue with positional changes. Physical Therapy Plan Frequency and Duration Frequency of Treatment 2x/Week Plan of Care Start Date 09/18/22 Plan of Care End Date 11/18/22 Therapeutic Interventions Therapeutic Interventions Balance Training,Canalithic Repositioning,Home Exercise Program,Manual Therapy, Neuromuscular Re-education, Patient/Caregiver Education, Self-Care/Home Management, Therapeutic Activities, Therapeutic Exercises, Vestibular Rehabilitation Next Visit Focus/Plan Next Note Type Treatment Note Next Visit Plan Positional testing, CRM as indicated
--- NOTE | 2023-02-24 16:11 | PT.OPDS ---
Current Diagnoses Benign paroxysmal vertigo, bilateral (10/28/22) Dizziness and giddiness (10/28/22) Visit Care Team Role Provider Type Sigrid Jarvis MD Primary Care Provider Non-Staff Specialty: Family Practice Address: [address] [place] [address], [address] Email: Cristiana Winston MD Family Provider Non-Staff Specialty: Internal Medicine Address: [address] [place] [address], [address] Email: Phill Cole MD Attending Provider Physician Referring Provider Specialty: Ear, Nose, Throat Address: [address] [place] [address], [address] Email: [email or web address] Visit Number Visit Number 2 Discharge Summary PT-OP-B Current Condition Start: 09/18/22 17:27 Freq: Status: Active Protocol: Document 09/18/22 12:00 DCW (Rec: 09/18/22 17:44 DCW [id number]) Current Condition History of Current Condition Onset Date Many years Current Complaints Positional vertigo with vague imbalance when up walking around History of Current Condition Pt is an 87 year old female complaining of a many year history of motion-induced vertigo and imbalance, as well as associated nausea and vomiting, and a few instances of dropping, unclear if there was any LOC. Pt reports episodes last less than five minutes. Symptoms are provoked specifically by positional changes, getting up and down in bed, or quick head turns, but also notes vague sensation of instability most of the time when up moving around. Pt reports symptoms are not waxing/waning in nature. Reports she was previously diagnosed with vertigo when she was in the [facility], and was given Meclizine, but doesn't like taking it, because it just puts her to sleep. Treatment Goals Patient/Caregiver Goals Decrease risk of falls PT-OP-C Subjective Start: 09/18/22 17:27 Freq: Status: Active Protocol: Document 10/28/22 12:00 DCW (Rec: 10/28/22 12:40 DCW [id number]) OP-PT Subjective Patient Comments Patient Comments It's the same thing, I feel like my balance is off. PT-OP-O Vestibular Start: 09/18/22 17:27 Freq: Status: Active Protocol: Document 10/28/22 12:00 DCW (Rec: 10/28/22 12:40 DCW [id number]) Vestibular Assessment Positional Testing [place]-Hallpike Positive Left,Negative Right, Upbeating,< 60 Seconds PT-OP-T Assessment and Plan Start: 09/18/22 17:27 Freq: Status: Active Protocol: Document 02/24/23 16:10 DCW (Rec: 02/24/23 16:11 DCW [id number]) Physical Therapy Assessment Assessment Summary Assessment At time of her last visit, pt was instructed to phone the clinic for a follwo-up within one month if her vestibular symptoms returned. Pt has now not been seen in three months, and has no further follow-up visits scheduled at this time. Pt will be discharged from vestibular PT at this time, will require a new referral in order to return. Physical Therapy Plan Discharge Physical Therapy Discharge Reasons No Longer Attending PT
== END 2023-02-27 10:01 | disposition home or self-care (01) ==
LOC: PHYS 12:00
PROVIDERS: Absent Provider Otolaryngology; Family Provider Internal Medicine; PCP Family Medicine; Referring Provider Otolaryngology; Visit Provider Otolaryngology
DX: H81.13 Benign paroxysmal vertigo, bilateral (principal)
CPT/HCPCS: 95992; 97161; 97535

== ENCOUNTER → 2023-08-28 14:34 | Outpatient (CLI) | payer MEDICARE, OTHER, SELFPAY ==
--- NOTE | 2023-08-28 | DI.US.S_ITS ---
PROCEDURE: US CAROTID DOPPLER BI INDICATIONS: Abnormal findings on diagnostic imaging of skull TECHNIQUE: Color and pulse Doppler interrogation was performed of both carotid systems, with image documentation and velocity measurements. COMPARISON: None. FINDINGS: Stenosis calculations are based on SRU (Society of Radiologists in Ultrasound) criteria. The flow velocities and the arterial waveforms are normal within both carotid arterial systems. Atherosclerotic plaque is seen on both sides, left worse than right. The estimated degree of internal carotid artery stenosis is less than 50%. Antegrade flow is confirmed within both vertebral arteries. IMPRESSION: No hemodynamically significant stenosis is seen. Atherosclerotic plaque is noted bilaterally, left worse than right. Dictated by: Bhaskar Govea M.D. on 08/28/2023 at 15:32 Approved by: Bhaskar Govea M.D. on 08/28/2023 at 15:34
== END ==
LOC: US 14:35
PROVIDERS: Family Provider Internal Medicine; PCP Nurse Practitioner Family; Referring Provider Nurse Practitioner Family; Visit Provider Nurse Practitioner Family
DX: I65.23 Occlusion and stenosis of bilateral carotid arteries (principal); R93.0 Abnormal findings on diagnostic imaging of skull and head, not elsewhere classified
CPT/HCPCS: 93880

== ENCOUNTER → 2025-02-23 07:42 | Outpatient (CLI) | payer MEDICARE, OTHER, SELFPAY ==
--- NOTE | 2025-02-23 07:44 | DI.ECHO.S_ITS ---
[place] [facility] : : [address] : : [place] : : [id number] : : Phone: [phone] Echocardiogram Report + + :Name: RANDY CALLEJAS Study Date: 02/23/2025 Height: 62 in : :[facility] ReadingLocation: Weight: 116 lb : : Gender: Female BSA: 1.5 m2 : :: 1935 Age: 89 yrs BP: 172/79 mmHg: :Reason For Study: MURMUR : :Ordering Physician: RUCHI TOMPKINS Performed By: Scott Roberts : :Referring: RUCHI TOMPKINS : + + Interpretation Summary - The left ventricular contractility is normal. Estimated ejection fraction is greater than 60% with no segmental wall motion abnormalities. No LVH. Grade 2 diastolic dysfunction. - The right ventricular contractility is normal. - Mild left atrial enlargement. All of the cardiac chambers are of normal size. - Moderate aortic insufficiency. - Trace to mild mitral regurgitation. - Trace to mild tricuspid regurgitation with estimated pulmonary systolic artery pressures of 37 mmHg. - Mild to moderate pulmonic insufficiency. - No obvious intracardiac shunts. - No obvious intracardiac masses nor thrombi. - No hemodynamically significant pericardial effusion. - Low right-sided filling pressures. Conclusion: Normal biventricular systolic function with mild to moderate valvular insufficiencies. Moderate diastolic dysfunction present. Procedure: A two-dimensional transthoracic echocardiogram with color flow and Doppler was performed. The study quality was technically good. There is no prior echocardiogram noted for this patient. The patient was in atrial fibrillation with heart rates between 49-66 bpm during the exam. The patient was in a bradycardic rhythm during the exam. Left Ventricle: The left ventricle is normal in size. There is normal left ventricular wall thickness. There is no ventricular septal defect visualized. The ejection fraction is estimated to be 55-60%. There are no focal wall motion abnormalities. Grade II diastolic dysfunction with elevated left atrial pressure. Right Ventricle: The right ventricle is normal in size and function. Atria: The left atrium is mildly dilated. Right atrial size is normal. There is no Doppler evidence for an interatrial shunt. Mitral Valve: There is mild mitral annular calcification. The mitral valve leaflets appear normal. There is no evidence of stenosis, fluttering, or prolapse. There is trace mitral regurgitation. Aortic Valve: The aortic valve is trileaflet. The aortic valve is mildly calcified. There is no hemodynamically significant valvular aortic stenosis. There is moderate aortic regurgitation. Tricuspid Valve: The tricuspid valve leaflets are thin and pliable. There is mild tricuspid regurgitation. The right ventricular systolic pressure is estimated to be at least 37 mmHg based on an estimated right atrial pressure of 3 mm Hg. Pulmonic Valve: The pulmonic valve is not well seen, but is grossly normal. There is mild to moderate pulmonic regurgitation. Great Vessels: The aortic root is normal size. The dimensions of the ascending aorta are normal. The pulmonary artery is normal size. The IVC is of normal diameter and collapses greater than 50% with a sniff. This suggests a low right atrial pressure of 3 mm Hg. Pericardium/ Pleura There is no pericardial effusion. There is no pleural effusion. MMode/2D Measurements & Calculations LVIDd: 4.5 cm LVOT diam: 1.8 cm LVIDs: 2.8 cm Ao root diam: 2.8 cm FS: 38.3 % asc Aorta Diam: 3.6 cm EPSS: 0.29 cm IVSd: 0.96 cm LVPWd: 0.73 cm LV drew. diameter/BSA (cm/m^2): 3.0 LV sys. diameter/BSA (cm/m^2): 1.8 LA A2 area: 18.5 cm2 RA long axis: 4.6 cm LA A4 area: 21.8 cm2 RA area: 12.5 cm2 LA length (vol): 5.9 cm RA vol: 29.0 ml LA vol: 58.1 ml RA : 19.1 ml/m2 LA vol index: 38.3 ml/m2 IVC diam: 1.2 cm RVD1 (basal): 3.2 cm RVD2 (mid): 2.0 cm TAPSE: 2.5 cm Doppler Measurements & Calculations Ao V2 max: 198.2 cm/sec LVOT Max Syed: 110.8 cm/sec Ao V2 mean: 145.8 cm/sec LV V1 max P.9 mmHg Ao max P.7 mmHg LV V1 VTI: 31.4 cm Ao mean P.0 mmHg SHALONDA(I,D): 1.6 cm2 Ao V2 VTI: 53.3 cm SHALONDA(V,D): 1.5 cm2 sev ratio: 0.59 SHALONDA indexed to BSA (cm^2/m^2): 1.0 AI P1/2t: 598.1 msec AI dec slope: 242.0 cm/sec2 MV E max syed: 52.2 cm/sec TR max syed: 292.1 cm/sec MV A max syed: 68.7 cm/sec TR max P.1 mmHg MV E/A: 0.76 PA V2 max: 122.3 cm/sec Med Peak E' Syed: 5.6 cm/sec PA V2 mean: 72.3 cm/sec E/E' med: 9.3 PA mean P.3 mmHg Lat Peak E' Syed: 7.5 cm/sec PA pr(Accel): 61.0 mmHg E/E' lat: 7.0 E/e' average: 8.1 MV dec time: 0.24 sec SV(LVOT): 83.4 ml Reading Physician:SOLANGE
== END ==
LOC: ECHO 07:43
PROVIDERS: Family Provider Internal Medicine; PCP Nurse Practitioner Family; Referring Provider Internal Medicine; Visit Provider Internal Medicine
DX: R01.1 Cardiac murmur, unspecified (principal); I51.7 Cardiomegaly; I35.1 Nonrheumatic aortic (valve) insufficiency; I34.0 Nonrheumatic mitral (valve) insufficiency; I07.1 Rheumatic tricuspid insufficiency; J98.4 Other disorders of lung
CPT/HCPCS: 93306